=== PATIENT | male | born 1955 | race Caucasian/White ===

== ENCOUNTER → 2017-04-09 | Outpatient (CLI) | payer BC | LOC: COL.RAD 09:31 | DX: K74.60 Unspecified cirrhosis of liver (principal) ==

== ENCOUNTER → 2017-09-19 | Outpatient (CLI) | payer BC | LOC: COL.RAD 07:21 | DX: B18.2 Chronic viral hepatitis C (principal); R93.2 Abnormal findings on diagnostic imaging of liver and biliary tract ==